=== PATIENT | female | born 1995 | race Caucasian/White ===

== ENCOUNTER 2019-09-07 18:22 | Emergency (ER) | payer OTHER ==
[~2019-09-07] VITALS: Ht 162.6 cm; Wt 85.6 kg
[2019-09-07] MEDS ORDERED: AUGMENTIN 875 MG TAB PO ONE (21:15)
[2019-09-07] MEDS ORDERED: AUGM875T28 PO (21:26)
[2019-09-07 21:42] VITALS: BP 138/79
== END 2019-09-07 21:43 | disposition home or self-care (01) ==
LOC: M ED 18:22
DX: S71.151A Open bite, right thigh, initial encounter (principal); W54.0XXA Bitten by dog, initial encounter; Y92.410 Unspecified street and highway as the place of occurrence of the external cause; Y93.K1 Activity, walking an animal